=== PATIENT | female | born 1995 | race African-American/Black ===

== ENCOUNTER 2018-02-12 15:35 | Observation (INO) | payer BC, OTHER ==
[~2018-02-12] VITALS: Ht 170.2 cm; Wt 60.0 kg
[2018-02-12] MEDS ORDERED: PLEASE ENTER ALLERGIES MC SCH (16:00)
[2018-02-12] MEDS ORDERED: PLEASE ENTER HEIGHT AND WEIGHT MC SCH (16:00)
[2018-02-12] MEDS ORDERED: LORazepam 1MG TABLET PO ONE (16:00)
[2018-02-12] MEDS ORDERED: LORazepam 1MG TABLET ONE (16:23)
[2018-02-12 16:24] LABS: AMPHETAMINE SCREEN, URINE Negative (Negative); BARBITURATE SCREEN, URINE Negative (Negative); BENZODIAZEPINE SCREEN, URINE Negative (Negative); CANNABINOID SCREEN, URINE Positive (Negative); COCAINE SCREEN, URINE Negative (Negative); METHADONE SCREEN, URINE Negative (Negative); OPIATE SCREEN, URINE Negative (Negative)
[2018-02-12 16:27] LABS: BASOPHILS # (AUTO) 0.04 x10^3/uL (0-0.1); BASOPHILS % (AUTO) 1 % (0-1); EOSINOPHILS # (AUTO) 0.03 x10^3/uL (0-0.4); EOSINOPHILS % (AUTO) 0 % (1-7); LYMPHOCYTES # (AUTO) 1.93 x10^3/uL (1-3.4); LYMPHOCYTES % (AUTO) 30 % (22-44); MD NO; MEAN CORPUSCULAR HEMOGLOBIN 30.6 pg (27.0-34.8); MEAN CORPUSCULAR HGB CONC 33.8 g/dL (32.4-35.8); MEAN CORPUSCULAR VOLUME 90.5 fL (80-100); MEAN PLATELET VOLUME 7.9 fL (7.4-10.4); MONOCYTES # (AUTO) 0.85 x10^3/uL (0.2-0.8); MONOCYTES % (AUTO) 13 % (2-9); NEUTROPHILS % (AUTO) 56 % (42-75); PLATELET COUNT 224 x10^3/uL (130-400); RED BLOOD COUNT 4.65 x10^6/uL (3.82-5.3); RED CELL DISTRIBUTION WIDTH 14.1 % (9.6-15.2)
[2018-02-12 16:39] LABS: ALBUMIN 3.9 g/dL (3.4-5.0); ANION GAP 7 mmol/L (5-15); CALCIUM 8.8 mg/dL (8.5-10.1); CHLORIDE 108 mmol/L (98-107)
[2018-02-12 16:42] LABS: SALICYLATE LEVEL < 1.7 mg/dL (2.8-20.0)
[2018-02-12 16:45] LABS: ALANINE AMINOTRANSFERASE 17 U/L (12-78); ALKALINE PHOSPHATASE 66 U/L (45-117); BILIRUBIN,TOTAL 0.8 mg/dL (0.2-1.0); CREATININE 1.07 mg/dL (0.55-1.02)
[2018-02-12 16:47] LABS: ACETAMINOPHEN < 2 mcg/mL (10-30)
[2018-02-12] MEDS ORDERED: DOCUSATE 100 MG CAPSULE PO PRN (19:00)
[2018-02-12] MEDS ORDERED: BISACODYL 10 MG SUPP PR PRN (19:00)
[2018-02-12] MEDS ORDERED: ONDANSETRON ODT 4 MG PO PRN (19:00)
[2018-02-12] MEDS ORDERED: ZIPRASIDONE 20 MG INJ IM PRN (19:00)
[2018-02-12] MEDS ORDERED: ACETAMINOPHEN 325 MG TABLET ONE (20:09)
[2018-02-12] MEDS: ACETAMINOPHEN 325 MG TABLET PO PRN (20:15)
[2018-02-12 20:45] VITALS: BP 129/89
[2018-02-13 06:37] LABS: THYROID STIMULATING HORMONE 1.09 mIU/L (0.358-3.740)
[2018-02-13 08:04] VITALS: BP 112/78
[2018-02-13] MEDS: ACETAMINOPHEN 325 MG TABLET PO PRN (11:47)
== END 2018-02-13 19:06 ==
LOC: ED 16:52 → EDIP 18:39 → 2N 20:43
PROVIDERS: ADMIT Internal Medicine; ATTEND Internal Medicine
DX: R45.851 Suicidal ideations (principal); F31.9 Bipolar disorder, unspecified; R45.850 Homicidal ideations; F12.90 Cannabis use, unspecified, uncomplicated; Z83.3 Family history of diabetes mellitus; Z82.49 Family history of ischemic heart disease and other diseases of the circulatory system
CPT/HCPCS: 36415; 80053; 80307; 80329; 84439; 84443; 84703; 85025; 99285; G0378; G0480